=== PATIENT | male | born 1940 | race Caucasian/White ===

== ENCOUNTER → 2018-11-03 | Outpatient (CLI) | payer BC ==
[~2018-11-03] MED LIST: FLUT9.9S NS; LISI1TAB3 PO; NAPR220T70 PO; TAMS0.4C2 PO
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
== END | disposition home or self-care (01) ==
LOC: KCIC MRI 09:59
PROVIDERS: ATTEND Family Medicine
DX: M51.17 Intervertebral disc disorders with radiculopathy, lumbosacral region (principal); M43.16 Spondylolisthesis, lumbar region; M25.78 Osteophyte, vertebrae
CPT/HCPCS: 72148

== ENCOUNTER → 2019-03-16 | Outpatient (CLI) | payer BC ==
--- NOTE | 2019-03-16 17:22 | CARD ---
MR#: [id number] Date of Study: 03/16/2019 Ordering Physician: PENNY DANG, Referring Physician: PENNY DANG Tech: Amairani Schumacher RDCS APPROVED REPORT EXAM: Two-dimensional and M-mode echocardiogram with Doppler and color Doppler. Other Information Quality : AverageHR: 64bpm Rhythm : NSR INDICATION Fatigue 2D DIMENSIONS RVDd3.1 (2.9-3.5cm)Left Atrium(2D)2.9 (1.6-4.0cm) IVSd1.1 (0.7-1.1cm)Aortic Root(2D)3.4 (2.0-3.7cm) LVDd4.9 (3.9-5.9cm)LVOT Diameter2.0 (1.8-2.4cm) PWd0.9 (0.7-1.1cm)LVDs3.5 (2.5-4.0cm) FS (%) 28.8 %SV63.4 ml LVEF(%)55.2 (>50%) M-Mode DIMENSIONS Left Atrium(MM)2.82 (2.5-4.0cm)Aortic Root3.21 (2.2-3.7cm) Aortic Valve AoV Peak Macho.153.1cm/sAoV VTI30.0cm AO Peak GR.9.4mmHgLVOT Peak Macho.129.4cm/s AO Mean GR.5mmHgAVA (VMAX)2.63cm2 MICHA (VTI)2.60cm2 Mitral Valve MV E Eopznmst57.4cm/sMV DECEL [id number] MV A Bdbdnzhg17.7cm/sE/A Ratio0.9 MV A [id number] Pulmonary Valve PV Peak Fwthudnj626.5cm/s LEFT VENTRICLE The left ventricle is normal size. Proximal septal thickening is noted. The left ventricular systolic function is normal. The Ejection Fraction is 55-60%. There is normal LV segmental wall motion. Trans mitral Doppler flow pattern is Grade I-abnormal relaxation pattern. RIGHT VENTRICLE The right ventricle is normal size. There is normal right ventricular wall thickness. The right ventr icular systolic function is normal. ATRIA The left atrium size is normal. The right atrium size is normal. The interatrial septum is intact wit h no evidence for an atrial septal defect or patent foramen ovale as noted on 2-D or Doppler imaging. AORTIC VALVE The aortic valve is trileaflet. The aortic valve is mildly calcified. Doppler and Color Flow revealed no significant aortic regurgitation. There is no significant aortic valvular stenosis. MITRAL VALVE The mitral valve is normal in structure and function. There is no evidence of mitral valve prolapse. There is no mitral valve stenosis. Doppler and Color-flow revealed trace mitral regurgitation. TRICUSPID VALVE The tricuspid valve is normal in structure and function. Doppler and Color Flow revealed no tricuspid valve regurgitation noted. There is no tricuspid valve prolapse or vegetation. There is no tricuspid valve stenosis. PULMONIC VALVE The pulmonic valve is not well visualized. GREAT VESSELS The aortic root is normal in size. The ascending aorta is normal in size. The IVC is normal in size a nd collapses >50% with inspiration. PERICARDIAL EFFUSION There is no evidence of significant pericardial effusion. Critical Notification Critical Value: No <Conclusion> The left ventricular systolic function is normal. The Ejection Fraction is 55-60%. There is normal LV segmental wall motion. Doppler and Color-flow revealed trace mitral regurgitation. There is no evidence of significant pericardial effusion. Signed by : Mic Otto, Electronically Approved : 03/16/2019 17:22:17
== END | disposition home or self-care (01) ==
LOC: ECHO 13:02
PROVIDERS: ATTEND Family Medicine
DX: I35.8 Other nonrheumatic aortic valve disorders (principal)
CPT/HCPCS: 93306

== ENCOUNTER → 2021-12-04 | Outpatient (CLI) | payer BC ==
[~2021-12-04] MED LIST changes: -LISI1TAB3 PO; +LISI1TAB35 PO
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
== END ==
LOC: US 14:46
PROVIDERS: ATTEND Physician Assistant Medical
DX: I70.293 Other atherosclerosis of native arteries of extremities, bilateral legs (principal); L53.9 Erythematous condition, unspecified
CPT/HCPCS: 93925